=== PATIENT | female | born 1980 | race Hispanic/Latino ===

== ENCOUNTER 2022-07-26 12:10 | Emergency (ER) | payer OTHER ==
[2022-07-26] MEDS ORDERED: PROMETHAZINE 25 MG TABLET ONE (12:47)
[2022-07-26] MEDS ORDERED: DIAZEPAM 5 MG TABLET ONE (12:47)
[2022-07-26 13:04] LABS: Urine Blood Negative (Negative); Urine Glucose Negative (Negative); Urine Protein 1+ (Negative); Urine pH 6.5 (5.0-7.0)
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
[2022-07-26 14:23] VITALS: TEMP 98
[2022-07-26 14:24] VITALS: BP 157/92; O2SAT 100
== END 2022-07-26 14:08 | disposition home or self-care (01) ==
LOC: ER 12:10
DX: S09.90XA Unspecified injury of head, initial encounter (principal); M54.2 Cervicalgia; R51.9 Headache, unspecified; V43.53XA Car driver injured in collision with pick-up truck in traffic accident, initial encounter
CPT/HCPCS: 81025; 81003; 70450; 71250; 72125; Q0169; 99284